=== PATIENT | male | born 1955 | race Caucasian/White ===

== ENCOUNTER 2017-02-03 23:42 | Emergency (ER) | payer SELFPAY ==
[~2017-02-03] VITALS: Ht 165.1 cm; Wt 82.0 kg
[2017-02-04 03:20] VITALS: BP 139/95
== END 2017-02-04 08:20 | disposition home or self-care (01) ==
LOC: ER 02-04 07:25
DX: B86 Scabies (principal); I10 Essential (primary) hypertension
CPT/HCPCS: 99283